=== PATIENT | male | born 1950 | race Asian ===

== ENCOUNTER 2021-05-18 06:32 | Day surgery (SDC) | payer MEDICARE, OTHER ==
[2021-05-15 14:18] LABS: COVID AG,FIA SOURCE NASOPHARYNGEAL
[~2021-05-18] VITALS: Ht 152.4 cm; Wt 54.5 kg
[~2021-05-18 06:32] MED LIST: SODIUM CHLORIDE 0.9% 1,000 ML IV ONE
[2021-05-18] MEDS ORDERED: LIDOCAINE 2% 30 ML JELLY TP ONE (06:33)
[2021-05-18] MEDS ORDERED: BENZOCAINE 20% 50 MCG/SPRAY 57 GM TP ONE (06:33)
[2021-05-18] MEDS ORDERED: ALBUTEROL SULFATE 2.5 MG/0.5 ML NEB SOLUTION NEB ONE (06:33)
[2021-05-18] MEDS ORDERED: BUDE10.2 IH (07:03)
[2021-05-18] MEDS ORDERED: VERA120T90 PO (07:03)
[2021-05-18] MEDS ORDERED: LOSA25TA21 PO (07:03)
[2021-05-18] MEDS ORDERED: SODIUM CHLORIDE 0.9% 1,000 ML ONE (07:24)
[2021-05-18] MEDS ORDERED: MIDAZOLAM HCL 5 MG/ML VIAL ONE (07:39)
[2021-05-18] MEDS ORDERED: FentaNYL CITRATE PF 100 MCG/2 ML VIAL ONE (07:39)
[2021-05-18] MEDS ORDERED: MethylPREDNISolone SOD SUCC 125 MG/2 ML VIAL IVP ONE (08:45)
[2021-05-18] MEDS ORDERED: OXYGEN THERAPY IH SCH (20:00)
== END 2021-05-18 11:00 | disposition home or self-care (01) ==
LOC: SURGERY 06:32
PROVIDERS: ATTEND Internal Medicine Critical Care Medicine
DX: J38.4 Edema of larynx (principal); B37.0 Candidal stomatitis; J45.909 Unspecified asthma, uncomplicated; Z86.11 Personal history of tuberculosis; Z79.899 Other long term (current) drug therapy; Z98.890 Other specified postprocedural states
CPT/HCPCS: 31623; 31624; 71045; 87015; 87070; 87077; 87101; 87186; 87206; 87220; 87426; 88108; 88184; 88185; 88312; C9803; J2250; J3010; J7030; J7613